=== PATIENT | male | born 2000 | race Caucasian/White ===

== ENCOUNTER 2020-10-17 01:44 | Emergency (ER) | payer OTHER ==
[~2020-10-17 01:44] MED LIST: AUGMENTIN 875-1 EACH PO; NAPROSYN500 MG PO
[2020-10-17] MEDS ORDERED: PREDNISONE 50 M50 MG PO (01:55)
[2020-10-17] MEDS ORDERED: PEPCID20 MG PO (01:55)
[2020-10-17] MEDS ORDERED: BENADRYL 50MG C50 MG PO (01:55)
== END 2020-10-17 04:08 | disposition home or self-care (01) ==
LOC: ER1 01:44
DX: L29.9 Pruritus, unspecified (principal); T37.0X5A Adverse effect of sulfonamides, initial encounter; F17.210 Nicotine dependence, cigarettes, uncomplicated; Y92.009 Unspecified place in unspecified non-institutional (private) residence as the place of occurrence of the external cause
CPT/HCPCS: 96365; 96375; 99284; J1200; J2930